=== PATIENT | female | born 1955 | race Hispanic/Latino ===

== ENCOUNTER → 2017-12-18 | Outpatient (CLI) | payer OTHER ==
[~2017-12-18] MED LIST: ATENOLOL50 MG PO; LASIX40 MG PO; LYRICA75 MG PO; PREMARIN0.625 MG PO; VITAMIN D400 UNI1 PO
--- NOTE | 2017-12-18 14:24 | Diagnostic Imaging Report ---
PROCEDURE:X-RAY LEFT ELBOW, COMPLETE COMPARISON:None. INDICATIONS:LEFT ELBOW PAIN FROM FALL FINDINGS: There are no displaced fractures, dislocations, lytic or blastic lesions. Lucent radial head line, seen only on lateral view, is less likely to represent a non displaced fracture and is probably a vascular groove. The bones are well-mineralized. The soft-tissues are unremarkable. CONCLUSION: No evidence of acute displaced fracture or dislocation. Lucent radial head line, seen only on lateral view, less likely to represent a non displaced fracture line and is probably a vascular groove. There is also no elbow joint effusion. Dictated by: Taran Wright M.D. on 12/18/2017 at 14:25 Electronically approved by: Taran Wright M.D. on 12/18/2017 at 14:25
== END | disposition home or self-care (01) ==
LOC: RAD 13:14
PROVIDERS: ATTEND Internal Medicine
DX: M25.522 Pain in left elbow (principal)

== ENCOUNTER → 2019-08-01 | Outpatient (CLI) | payer OTHER ==
[~2019-08-01] MED LIST changes: +GADOBENATE DIMEGLUMINE 1 ML IV ONE
[2019-08-01 08:42] LABS: BLOOD UREA NITROGEN 24 mg/dL (7-26); BUN/CREATININE RATIO 30 (6-25); CREATININE, SERUM 0.79 mg/dL (0.57-1.11); EST GLOMERULAR FILTRATION RATE > 60 ML/MIN (60-)
--- NOTE | 2019-08-01 11:49 | Diagnostic Imaging Report ---
History: Headache Comparison studies: None Technique: Pre-contrast: Sagittal T2; axial T1-IR, MPGR, DWI, T2 FLAIR Post-contrast: axial and coronal T1. Intravenous contrast: 20 of MultiHance Findings: Scalp: No abnormal signal. No masses. Bone marrow: Normal in signal intensity. Brain sulci: Appropriate for age. Ventricles: Normal in size . No hydrocephalus. Extra-axial: No masses, fluid collections or hemorrhage. Parenchyma: No abnormal signal intensities. No masses, hemorrhage, acute or chronic vascular insults. No enhancing abnormalities. Suprasellar region: No abnormalities. Craniocervical junction: No abnormalities. Patent foramen magnum. No Chiari one malformation.. Vessels: Normal flow-voids in the arteries and sinuses. Incidental findings: Mild mucosal thickening at the right sphenoid sinus. IMPRESSION: 1. No intracranial abnormality. 2. Mild nonspecific changes of the right sphenoid sinus Signed by: DR Fredrick Vee M.D. on 08/01/2019 11:45 AM
== END ==
LOC: MRI 07:50
PROVIDERS: ATTEND Internal Medicine
DX: R51 Headache (principal)
CPT/HCPCS: 36415; 70553; 82565; 84520; A9577

== ENCOUNTER → 2020-03-17 | Outpatient (CLI) | payer OTHER ==
[~2020-03-17] MED LIST changes: -GADOBENATE DIMEGLUMINE 1 ML IV ONE; +IOPAMIDOL 370 MG/ML 200 ML INFUS..BTL INJ ONE; +SODIUM CHLORIDE 0.9% 50ML 50 ML ONE
[2020-03-17 10:19] LABS: BLOOD UREA NITROGEN 15 mg/dL (7-26); BUN/CREATININE RATIO 20 (6-25); CREATININE, SERUM 0.74 mg/dL (0.57-1.11); EST GLOMERULAR FILTRATION RATE > 60 ML/MIN (60-)
--- NOTE | 2020-03-17 11:05 | Diagnostic Imaging Report ---
EXAM: CT Abdomen and Pelvis WITH intravenous contrast INDICATION: Abdominal pain COMPARISON: None. TECHNIQUE: Abdomen and pelvis were scanned utilizing a multidetector helical scanner from the lung base to the pubic symphysis after administration of IV contrast. Coronal and sagittal reformations were obtained. Routine protocol was performed. Scan was performed during portal venous phase. IV CONTRAST: 100mL of Isovue 370 ORAL CONTRAST: Water RADIATION DOSE: Total DLP: 771 mGy*cm Dose modulation, iterative reconstruction, and/or weight based adjustment of the mA/kV was utilized to reduce the radiation dose to as low as reasonably achievable. FINDINGS: LOWER THORAX: Normal. HEPATOBILIARY: No focal liver lesion. No biliary ductal dilation. Status post cholecystectomy. SPLEEN: No splenomegaly. PANCREAS: No focal masses or ductal dilatation. ADRENALS: No adrenal nodules. KIDNEYS/URETERS: No hydronephrosis, renal calculi, or solid renal mass lesion. 1.5 cm anterior right lower pole renal cyst. PELVIC ORGANS/BLADDER: Status post hysterectomy. PERITONEUM / RETROPERITONEUM: No free air or fluid. LYMPH NODES: No lymphadenopathy. VESSELS: Mild scattered atherosclerotic calcifications of the nonaneurysmal abdominal aorta. GI TRACT: Status post sleeve partial gastrectomy. Mild diverticulosis. No CT evidence of diverticulitis. No abnormal bowel wall thickening. No bowel obstruction. BONES AND SOFT TISSUES: No acute osseous injury. No suspicious lytic or blastic lesions. Ventral abdominal hernia mesh repair. IMPRESSION: No acute findings in the abdomen or pelvis. Signed by: Ann Gonzalez MD on 03/17/2020 11:02 AM
== END ==
LOC: CT 09:35
PROVIDERS: ATTEND Internal Medicine
DX: R10.0 Acute abdomen (principal)
CPT/HCPCS: 36415; 74177; 82565; 84520; Q9967

== ENCOUNTER 2020-06-23 11:00 | Outpatient (RCR) | payer OTHER ==
[~2020-06-23 11:00] MED LIST changes: -IOPAMIDOL 370 MG/ML 200 ML INFUS..BTL INJ ONE; -SODIUM CHLORIDE 0.9% 50ML 50 ML ONE
== END 2020-07-10 ==
LOC: PT 11:00
PROVIDERS: ATTEND Specialist
DX: M70.61 Trochanteric bursitis, right hip (principal); R26.2 Difficulty in walking, not elsewhere classified; M25.551 Pain in right hip; M25.552 Pain in left hip; M62.81 Muscle weakness (generalized)

== ENCOUNTER 2024-03-07 08:00 | Outpatient (RCR) | payer MEDICARE ==
[~2024-03-07 08:00] MED LIST changes: +COLLAGENASE OINTMENT 30 GM TUBE ONE; +LIDOCAINE VISC 2% SOLN 15 ML UDC ONE; +LIDOCAINE/PRILOCAINE 2.5-2.5% KIT ONE
[2024-03-07] MEDS ORDERED: MINERAL OIL/PETROLAT/GLYCERI 6OZ BTL ONE (12:49)
[2024-03-07] MEDS ORDERED: COLLAGENASE OINTMENT 30 GM TUBE ONE (12:49)
== END 2024-03-07 12:00 | disposition home or self-care (01) ==
LOC: WCC 08:00
PROVIDERS: ATTEND Nurse Practitioner Family
DX: S81.802A Unspecified open wound, left lower leg, initial encounter (principal); R60.0 Localized edema

== ENCOUNTER 2024-03-24 14:23 | Emergency (ER) | payer MEDICARE ==
[~2024-03-24] VITALS: Ht 165.1 cm; Wt 122.5 kg
[~2024-03-24 14:23] MED LIST changes: -COLLAGENASE OINTMENT 30 GM TUBE ONE; -LIDOCAINE VISC 2% SOLN 15 ML UDC ONE; -LIDOCAINE/PRILOCAINE 2.5-2.5% KIT ONE
[2024-03-24 15:19] VITALS: TEMP 97.9
[2024-03-24] MEDS ORDERED: PROCHLORPERAZINE EDISYLATE 5 MG/ML VIAL IV ONE (15:30)
[2024-03-24] MEDS: DIPHENHYDRAMINE HCL INJ 50 MG/ML VIAL IV ONE (16:49)
[2024-03-24] MEDS: ACETAMINOPHEN 325 MG TAB PO ONE (16:49)
[2024-03-24] MEDS: KETOROLAC TROMETHAMINE 30 MG/ML VIAL IV ONE (16:49)
[2024-03-24] MEDS: PROCHLORPERAZINE EDISYLATE INJ 10 MG in Sodium Chloride 0.9% 50ML 50 ML IV ONE (17:05)
[2024-03-24 17:45] VITALS: PULSE 72; RESP 15
[2024-03-24 18:22] VITALS: BP 151/78; PULSE 73; RESP 16; O2SAT 100
== END 2024-03-24 18:00 | disposition home or self-care (01) ==
LOC: ER 15:32
DX: I16.0 Hypertensive urgency (principal); I10 Essential (primary) hypertension; R51.9 Headache, unspecified; E11.9 Type 2 diabetes mellitus without complications; Z79.899 Other long term (current) drug therapy
CPT/HCPCS: 70450; 99283; J0780; J1200; J1885

== ENCOUNTER → 2024-04-09 | Outpatient (RCR) | payer MEDICARE ==
[~2024-04-09] MED LIST changes: +COLLAGENASE OINTMENT 30 GM TUBE ONE; +LIDOCAINE VISC 2% SOLN 15 ML UDC ONE; +LIDOCAINE/PRILOCAINE 2.5-2.5% KIT ONE; +MINERAL OIL/PETROLAT/GLYCERI 6OZ BTL ONE
== END ==
LOC: WCC 03-10 08:00
PROVIDERS: ATTEND Nurse Practitioner Family
DX: S81.802A Unspecified open wound, left lower leg, initial encounter (principal); R60.0 Localized edema
CPT/HCPCS: 11042 ×2; 11045; 15271; 15272; 29581 ×9; 97602; 99212 ×4; 99213 ×6; Q4121

== ENCOUNTER 2024-05-09 10:15 | Outpatient (RCR) | payer MEDICARE ==
[~2024-05-09 10:15] MED LIST changes: -COLLAGENASE OINTMENT 30 GM TUBE ONE
[2024-05-09] MEDS ORDERED: MINERAL OIL/PETROLAT/GLYCERI 6OZ BTL ONE (12:38)
== END 2024-05-10 ==
LOC: WCC 10:15
PROVIDERS: ATTEND Nurse Practitioner Family
DX: S81.802D Unspecified open wound, left lower leg, subsequent encounter (principal); R60.0 Localized edema

== ENCOUNTER 2024-06-02 08:53 | Outpatient (RCR) | payer MEDICARE ==
[~2024-06-02 08:53] MED LIST changes: -LIDOCAINE/PRILOCAINE 2.5-2.5% KIT ONE; +TRIAMCINOLONE ACET 0.1% CREAM 15 GM TUBE ONE
[2024-06-04] MEDS ORDERED: MINERAL OIL/PETROLAT/GLYCERI 6OZ BTL ONE (13:29)
== END 2024-06-09 ==
LOC: WCC 08:53
PROVIDERS: ATTEND Nurse Practitioner Family
DX: S81.802D Unspecified open wound, left lower leg, subsequent encounter (principal); R60.0 Localized edema

== ENCOUNTER 2024-07-02 13:17 | Outpatient (RCR) | payer MEDICARE ==
[~2024-07-02 13:17] MED LIST changes: +MUPIROCIN 2% OINT 22 GM TUBE ONE; +SODIUM CHLORIDE 0.9% INJ 250 ML BAG ONE; -TRIAMCINOLONE ACET 0.1% CREAM 15 GM TUBE ONE
== END 2024-07-10 ==
LOC: WCC 13:17
PROVIDERS: ATTEND Nurse Practitioner Family
DX: S81.802D Unspecified open wound, left lower leg, subsequent encounter (principal); S41.112A Laceration without foreign body of left upper arm, initial encounter; S41.111A Laceration without foreign body of right upper arm, initial encounter
CPT/HCPCS: 99212; 99213 ×3; J7050

== ENCOUNTER 2024-10-08 09:19 | Outpatient (RCR) | payer OTHER ==
[~2024-10-08 09:19] MED LIST changes: +LIDOCAINE/PRILOCAINE 2.5-2.5% KIT ONE; -MINERAL OIL/PETROLAT/GLYCERI 6OZ BTL ONE; -SODIUM CHLORIDE 0.9% INJ 250 ML BAG ONE
[2024-10-08] MEDS ORDERED: MUPIROCIN 2% OINT 22 GM TUBE ONE (15:28)
[2024-10-08] MEDS ORDERED: LIDOCAINE VISC 2% SOLN 15 ML UDC ONE (15:28)
== END 2024-10-10 ==
LOC: WCC 09:19
PROVIDERS: ATTEND Nurse Practitioner Family
DX: S51.802D Unspecified open wound of left forearm, subsequent encounter (principal); S81.801D Unspecified open wound, right lower leg, subsequent encounter; S61.401D Unspecified open wound of right hand, subsequent encounter; S51.001D Unspecified open wound of right elbow, subsequent encounter

== ENCOUNTER 2024-10-15 10:23 | Outpatient (RCR) | payer MEDICARE, OTHER ==
[~2024-10-15 10:23] MED LIST changes: -LIDOCAINE VISC 2% SOLN 15 ML UDC ONE; -LIDOCAINE/PRILOCAINE 2.5-2.5% KIT ONE; -MUPIROCIN 2% OINT 22 GM TUBE ONE
[2024-10-15] MEDS ORDERED: LIDOCAINE VISC 2% SOLN 15 ML UDC ONE (11:30)
[2024-10-15] MEDS ORDERED: MUPIROCIN 2% OINT 22 GM TUBE ONE (11:30)
[2024-10-29] MEDS ORDERED: MUPIROCIN 2% OINT 22 GM TUBE ONE (12:19)
[2024-10-29] MEDS ORDERED: LIDOCAINE VISC 2% SOLN 15 ML UDC ONE (12:19)
== END 2024-11-07 ==
LOC: WCC 10:23
PROVIDERS: ATTEND Nurse Practitioner Family
DX: S51.802D Unspecified open wound of left forearm, subsequent encounter (principal); S81.801D Unspecified open wound, right lower leg, subsequent encounter